=== PATIENT | male | born 1940 | race Caucasian/White ===

== ENCOUNTER 2022-01-03 17:22 | Inpatient (IN) | payer MEDICARE, OTHER ==
[2022-01-03] MEDS ORDERED: Heparin Sodium/0.45% NaCl 25,000 UNITS/500 ML BAG IV SCH (18:00)
[2022-01-03] MEDS ORDERED: Acetaminophen/HYDROcodone 325-5 MG Tab PO PRN (18:14)
[2022-01-03] MEDS ORDERED: HYDROmorphone 0.5 MG/0.5 ML Syringe IVPUSH PRN (18:14)
[2022-01-03] MEDS ORDERED: Acetaminophen 325 MG Tab PO PRN (18:14)
[2022-01-03] MEDS ORDERED: Ondansetron 4 MG/2 ML SDV IVPUSH PRN (18:20)
[2022-01-03] MEDS ORDERED: Albuterol/Ipratropium 3.0-0.5 MG/3 ML Neb Soln NEB PRN (18:20)
[2022-01-03] MEDS ORDERED: Polyethylene Glycol 3350 Powder 17 GM Packet PO PRN (18:20)
[2022-01-03] MEDS ORDERED: 50% Dextrose in Water 50 ML Syringe IVPUSH PRN (18:27)
[2022-01-03] MEDS ORDERED: Glucagon,Human Recombinant 1 MG Vial IM PRN (18:27)
[2022-01-03] MEDS ORDERED: guaiFENesin/Dextromethorphan 100-10 MG/5 ML Soln 5 ML Cup PO PRN (18:28)
[2022-01-03] MEDS ORDERED: Metoprolol Tartrate 5 MG/5 ML SDV IVPUSH PRN (18:35)
[2022-01-03] MEDS ORDERED: hydrALAZINE 20 MG/ML SDV IVPUSH PRN (18:35)
[2022-01-03] MEDS ORDERED: REMDESIVIR 200 MG in Sodium Chloride 0.9% 250 ML IV ONE ×2 (19:00→20:00)
[2022-01-03] MEDS: Heparin Sodium/0.45% NaCl 25,000 UNITS/500 ML BAG IV SCH (20:32)
[2022-01-03] MEDS: hydrOXYzine HCl 10 MG Tab PO SCH (21:56)
[2022-01-03] MEDS: Saccharomyces Boulardii (Probiotic) 250 MG Cap PO SCH (21:56)
[2022-01-03] MEDS: Tamsulosin 0.4 MG Cap.ER PO SCH (21:57)
[2022-01-03] MEDS: Sodium Chloride 0.9% 10 ML Syringe FLUSH SCH (21:59)
[2022-01-04] MEDS ORDERED: Heparin Sodium 5,000 Units/ML Vial IVPUSH ONE ×3 (02:30→20:33)
[2022-01-04] MEDS: Levothyroxine 75 MCG Tab PO SCH (06:01)
[2022-01-04 07:17] LABS: ANION GAP 11.3 mEq/L (7-13)
[2022-01-04] MEDS: Insulin Lispro 100 Units/ML 3 ML Vial SUBCUT SCH ×3 (08:02→17:04)
[2022-01-04] MEDS: Saccharomyces Boulardii (Probiotic) 250 MG Cap PO SCH ×2 (10:01→20:17)
[2022-01-04] MEDS: Potassium Chloride 10 MEQ Tab.ER PO SCH ×2 (10:01→17:05)
[2022-01-04] MEDS: Hydrochlorothiazide 25 MG Tab PO SCH (10:03)
[2022-01-04] MEDS: predniSONE 10 MG Tab PO SCH (10:03)
[2022-01-04] MEDS: Sodium Chloride 0.9% 10 ML Syringe FLUSH SCH ×2 (10:04→20:18)
[2022-01-04] MEDS: Heparin Sodium/0.45% NaCl 25,000 UNITS/500 ML BAG IV SCH (10:21)
[2022-01-04] MEDS ORDERED: Albuterol 6.7 GM Inhaler INH PRN (12:48)
[2022-01-04] MEDS ORDERED: Ascorbic Acid 500 MG Tab PO PRN (13:58)
[2022-01-04] MEDS: Sodium Chloride 0.9% 10 ML Syringe FLUSH PRN ×2 (14:46→15:37)
[2022-01-04] MEDS: cefTRIAXone 1 GM in Sodium Chloride 0.9% 50 ML IV SCH (14:46)
[2022-01-04] MEDS: Azithromycin 500 MG in Sodium Chloride 0.9% 250 ML IV SCH (15:36)
[2022-01-04] MEDS: PIRFENIDONE 267 MG PO SCH (17:05)
[2022-01-04] MEDS ORDERED: REMDESIVIR 100 MG in Sodium Chloride 0.9% 100 ML IV SCH (20:00)
[2022-01-04] MEDS: Tamsulosin 0.4 MG Cap.ER PO SCH (20:17)
[2022-01-04] MEDS: Zolpidem 5 MG Tab PO PRN (20:18)
[2022-01-04] MEDS: hydrOXYzine HCl 10 MG Tab PO SCH (20:18)
[2022-01-04] MEDS: Triamcinolone Acetonide 0.1% Oint 15 GM Tube TOP SCH (20:19)
[2022-01-04] MEDS: REMDESIVIR 100 MG in Sodium Chloride 0.9% 100 ML IV SCH (20:20)
[2022-01-04] MEDS ORDERED: predniSONE 10 MG Tab PO ONE (21:00)
[2022-01-05] MEDS: Heparin Sodium/0.45% NaCl 25,000 UNITS/500 ML BAG IV SCH (00:37)
[2022-01-05] MEDS: Levothyroxine 75 MCG Tab PO SCH (05:48)
[2022-01-05 07:44] LABS: ANION GAP 14.1 mEq/L (7-13)
[2022-01-05] MEDS: PIRFENIDONE 267 MG PO SCH ×3 (08:11→18:19)
[2022-01-05] MEDS: Insulin Lispro 100 Units/ML 3 ML Vial SUBCUT SCH ×3 (08:13→17:43)
[2022-01-05] MEDS: Hydrochlorothiazide 25 MG Tab PO SCH (08:15)
[2022-01-05] MEDS: predniSONE 10 MG Tab PO SCH (08:15)
[2022-01-05] MEDS: Saccharomyces Boulardii (Probiotic) 250 MG Cap PO SCH ×2 (08:15→21:13)
[2022-01-05] MEDS: cefTRIAXone 1 GM in Sodium Chloride 0.9% 50 ML IV SCH (14:22)
[2022-01-05] MEDS: Triamcinolone Acetonide 0.1% Oint 15 GM Tube TOP SCH ×2 (14:23→21:16)
[2022-01-05] MEDS: Sodium Chloride 0.9% 10 ML Syringe FLUSH SCH ×2 (14:25→21:15)
[2022-01-05] MEDS: Azithromycin 500 MG in Sodium Chloride 0.9% 250 ML IV SCH (15:01)
[2022-01-05] MEDS: hydrOXYzine HCl 10 MG Tab PO SCH (21:12)
[2022-01-05] MEDS: Apixaban 5 MG Tab PO SCH (21:13)
[2022-01-05] MEDS: Tamsulosin 0.4 MG Cap.ER PO SCH (21:13)
[2022-01-05] MEDS: REMDESIVIR 100 MG in Sodium Chloride 0.9% 100 ML IV SCH (21:14)
[2022-01-06] MEDS: Levothyroxine 75 MCG Tab PO SCH (05:41)
[2022-01-06] MEDS ORDERED: Azithromycin 500 MG in Sodium Chloride 0.9% 250 ML IV SCH (07:00)
[2022-01-06] MEDS ORDERED: cefTRIAXone 1 GM in Sodium Chloride 0.9% 50 ML IV SCH (07:00)
[2022-01-06 07:22] LABS: ANION GAP 10.7 mEq/L (7-13)
[2022-01-06] MEDS: Saccharomyces Boulardii (Probiotic) 250 MG Cap PO SCH ×2 (09:00→21:18)
[2022-01-06] MEDS: Hydrochlorothiazide 25 MG Tab PO SCH (09:02)
[2022-01-06] MEDS: Apixaban 5 MG Tab PO SCH ×2 (09:03→21:19)
[2022-01-06] MEDS: Insulin Lispro 100 Units/ML 3 ML Vial SUBCUT SCH ×3 (09:04→17:32)
[2022-01-06] MEDS: PIRFENIDONE 267 MG PO SCH ×3 (09:09→17:33)
[2022-01-06] MEDS: Triamcinolone Acetonide 0.1% Oint 15 GM Tube TOP SCH ×2 (09:09→21:23)
[2022-01-06] MEDS: predniSONE 10 MG Tab PO SCH (12:17)
[2022-01-06] MEDS: Sodium Chloride 0.9% 10 ML Syringe FLUSH SCH ×2 (12:17→21:17)
[2022-01-06] MEDS: REMDESIVIR 100 MG in Sodium Chloride 0.9% 100 ML IV SCH (13:36)
[2022-01-06] MEDS: Sodium Chloride 0.9% 10 ML Syringe FLUSH PRN (21:18)
[2022-01-06] MEDS: Tamsulosin 0.4 MG Cap.ER PO SCH (21:19)
[2022-01-06] MEDS: Zolpidem 5 MG Tab PO PRN (21:20)
[2022-01-06] MEDS: hydrOXYzine HCl 10 MG Tab PO SCH (21:20)
[2022-01-07] MEDS: Levothyroxine 75 MCG Tab PO SCH (05:38)
[2022-01-07 07:32] LABS: ANION GAP 9.2 mEq/L (7-13)
[2022-01-07] MEDS ORDERED: cefTRIAXone 1 GM in Sodium Chloride 0.9% 50 ML IV SCH (08:00)
[2022-01-07] MEDS: Hydrochlorothiazide 25 MG Tab PO SCH (08:22)
[2022-01-07] MEDS: Apixaban 5 MG Tab PO SCH (08:22)
[2022-01-07] MEDS: Saccharomyces Boulardii (Probiotic) 250 MG Cap PO SCH (08:22)
[2022-01-07] MEDS: predniSONE 10 MG Tab PO SCH (08:22)
[2022-01-07] MEDS: PIRFENIDONE 267 MG PO SCH ×2 (08:24→12:46)
[2022-01-07] MEDS: Insulin Lispro 100 Units/ML 3 ML Vial SUBCUT SCH ×2 (08:25→11:46)
[2022-01-07] MEDS: Sodium Chloride 0.9% 10 ML Syringe FLUSH SCH (08:37)
[2022-01-07] MEDS: Triamcinolone Acetonide 0.1% Oint 15 GM Tube TOP SCH (08:37)
[2022-01-07] MEDS ORDERED: Azithromycin 500 MG in Sodium Chloride 0.9% 250 ML IV SCH (09:00)
[2022-01-07] MEDS: REMDESIVIR 100 MG in Sodium Chloride 0.9% 100 ML IV SCH (11:09)
[2022-01-12] MEDS ORDERED: Apixaban 5 MG Tab PO SCH (21:00)
== END 2022-01-07 13:15 | disposition home or self-care (01) | DRG 177 ==
LOC: DL.MS 17:55
PROVIDERS: ADMIT Internal Medicine; ATTEND Internal Medicine
PROC: XW033E5 Introduction of Remdesivir Anti-infective into Peripheral Vein, Percutaneous Approach, New Technology Group 5 (ICD-10-PCS; principal; 2022-01-03)
PROC: 3E0DX3Z Introduction of Anti-inflammatory into Mouth and Pharynx, External Approach (ICD-10-PCS; 2022-01-03)
DX: U07.1 COVID-19 (principal); I26.99 Other pulmonary embolism without acute cor pulmonale; J12.82 Pneumonia due to coronavirus disease 2019; I82.431 Acute embolism and thrombosis of right popliteal vein; J43.9 Emphysema, unspecified; J84.10 Pulmonary fibrosis, unspecified; K44.9 Diaphragmatic hernia without obstruction or gangrene; R79.1 Abnormal coagulation profile; R73.9 Hyperglycemia, unspecified; Z66 Do not resuscitate; E66.9 Obesity, unspecified; E87.6 Hypokalemia; E88.09 Other disorders of plasma-protein metabolism, not elsewhere classified; K21.9 Gastro-esophageal reflux disease without esophagitis; N18.30 Chronic kidney disease, stage 3 unspecified; M40.209 Unspecified kyphosis, site unspecified; G47.33 Obstructive sleep apnea (adult) (pediatric); K42.9 Umbilical hernia without obstruction or gangrene; F17.210 Nicotine dependence, cigarettes, uncomplicated; I12.9 Hypertensive chronic kidney disease with stage 1 through stage 4 chronic kidney disease, or unspecified chronic kidney disease; Z68.38 Body mass index [BMI] 38.0-38.9, adult; Z87.440 Personal history of urinary (tract) infections; Z86.73 Personal history of transient ischemic attack (TIA), and cerebral infarction without residual deficits; Z79.01 Long term (current) use of anticoagulants; Z88.5 Allergy status to narcotic agent; Z96.653 Presence of artificial knee joint, bilateral
CPT/HCPCS: 36415; 71045; 80053; 82248; 82306; 82947; 83735; 85025; 85651; 85730; 86140; 87070; 87205; 93970; 94640; 97161-GP; 97165-GO; 97530-GP; A9270-GY; J0456; J0696; J1644; J3490; J7050; J7512; J7620-GY

== ENCOUNTER 2025-01-30 13:49 | Emergency (ER) | payer OTHER ==
[2025-01-30] MEDS ORDERED: Sodium Chloride 0.9% 10 ML Syringe FLUSH PRN (14:18)
[2025-01-30 14:23] LABS: PLATELET COUNT,PLT 148 10^3/uL (150-450); RED BLOOD CELL COUNT 5.39 10^6/uL (4.6-6.2); WHITE BLOOD CELL COUNT,WBC 9.6 10^3/uL (5.0-10.0)
[2025-01-30 14:24] LABS: BASOPHILS PERCENT AUTO 0.3 % (0.0-1.0); EOSINOPHILS PERCENT AUTO 4.5 % (1.0-3.0); LYMPHOCYTES PERCENT AUTO 40.2 % (20.5-50.1); MONOCYTES PERCENT AUTO 10.6 % (2-8); NEUTROPHILS PERCENT AUTO 44.4 % (42.2-75.2)
[2025-01-30 14:34] LABS: A/G RATIO 0.8; ALANINE AMINOTRANSFERASE,ALT 13.0 U/L (16-63); ASPARTATE AMNIOTRANSFERASE,AST 26.0 U/L (15-37); BILIRUBIN TOTAL 0.6 mg/dL (0.2-1.0); BLOOD UREA NITROGEN,BUN 17.0 mg/dL (7-18); CARBON DIOXIDE,CO2 26.0 mmol/L (21-32); CHLORIDE,CL 101.0 mmol/L (98-107); CREATININE 1.34 mg/dL (0.70-1.30); EST CRCL DRUG DOSING (CG) 41.77 mL/min; ESTIMATED GFR 53.0 mL/min (>=60); GLUCOSE RANDOM 105.0 mg/dL (70-99); POTASSIUM,K 3.5 mmol/L (3.5-5.1); PROTEIN TOTAL,TP 8.6 g/dL (6.4-8.2); SODIUM,NA 138.0 mmol/L (136-145)
[2025-01-30] MEDS: Atropine/Diphenoxylate 0.025-2.5 MG Tab PO ONE (14:35)
[2025-01-30 14:39] LABS: EOSINOPHILS PERCENT MAN 5 % (1-3); LYMPHOCYTES PERCENT MAN 35 % (20-50); MONOCYTES PERCENT MAN 12 % (2-8); SEG NEUTROPHILS PERCENT MAN 48 % (42-75)
== END 2025-01-30 15:41 | disposition home or self-care (01) ==
LOC: DL.ED 13:49
DX: E86.0 Dehydration (principal); R19.7 Diarrhea, unspecified; I10 Essential (primary) hypertension; K21.9 Gastro-esophageal reflux disease without esophagitis; E03.9 Hypothyroidism, unspecified; Z79.899 Other long term (current) drug therapy; Z79.890 Hormone replacement therapy
CPT/HCPCS: 36415; 80053; 85025; 86140; 87045; 87899; 93005; 96360; 99284; A9270; J7050; 87046; 93010